=== PATIENT | male | born 1935 | race Caucasian/White ===

== ENCOUNTER 2016-08-22 19:09 | Emergency (ER) | payer MEDICARE ==
[2016-08-22] MEDS ORDERED: IOPAMIDOL 370 (76%) 100 ML VIAL IV ONE (19:10)
[2016-08-22] MEDS ORDERED: LACTATED RINGERS 1,000 ML ONE (19:46)
[2016-08-22] MEDS ORDERED: ASPIRIN CHEWTAB 81 MG TABLET ONE (19:46)
[2016-08-22] MEDS ORDERED: ACETAMINOPHEN 500 MG TABLET ONE (19:46)
[2016-08-22 19:59] LABS: BASO % 0.2 % (0.2-1.0); LYMPH # 0.6 (1.0-4.8); LYMPH % 4.9 % (15-45)
[2016-08-22 20:03] LABS: ABSOLUTE NEUTROPHIL COUNT 11.3 K/mm3 (1.8-7.7); EOS % 0.3 % (0.9-2.9); HEMOGLOBIN 15.8 gm/l (14.0-18.0); IMM NEUT% 0.2 % (0-1); MEAN CELL VOLUME 97.9 fl (80.0-94.0); MEAN CORPUSCULAR HEMOGLOBIN 32.9 pg (27.0-31.0); MEAN CORPUSCULAR HGB CONC 33.6 g/dl (33.0-37.0); MEAN PLATELET VOLUME 11.4 fl (7.4-10.4); MONO # 0.5 (0.0-0.8); MONO % 3.6 % (4-12); NEUT % 90.8 % (43-75); PLATELET COUNT 168 K/mm3 (130-400); RED CELL DISTRIBUTION WIDTH 12.1 % (11.5-14.5)
[2016-08-22 20:36] LABS: ALB/GLOB RATIO 1.5 (>1.0); ALBUMIN 4.4 gm/dL (3.5-5.7); CALCIUM 9.6 mg/dL (8.6-10.3); MAGNESIUM 1.7 mg/dL (1.9-2.7)
[2016-08-22 20:42] LABS: NEUTROPHILS 87 % (43-75); TOTAL CELLS COUNTED 100
[2016-08-22 20:43] LABS: BAND 1 % (0-10); BASOPHIL 0 % (0-1); EOSINOPHIL 3 % (1-3); LYMPHOCYTE 8 % (15-45); MONOCYTE 1 % (4-12); PLATELET ESTIMATE NORMAL (NORMAL); TROPONIN I 0.03 ng/ml (0.0-0.06)
[2016-08-22 20:47] LABS: CKMB ISOENZYME 2.1 ng/ml (0.6-6.3)
[2016-08-22 20:53] LABS: THYROID STIMULATING HORMONE 1.68 uIU/ml (0.34-5.60)
--- NOTE | 2016-08-22 20:55 | RAD ---
CHEST - 2 VIEWS COMPARISON: Portable chest x-ray, 08/10/1939 HISTORY: Fever and weakness. Tachycardia and decreased oxygen saturation. FINDINGS: Views: Frontal and lateral chest Lungs: No change. Scarring in the right lung base. Calcified nodule in the apex of the left upper lobe. The lungs are otherwise clear. Heart and vessels: Normal Trachea and bronchi: Normal Mediastinum and florence: Normal Costophrenic sulci: No change. Minimal blunting on the right. Chest wall and bones: Normal. Upper abdomen: Normal. IMPRESSION: No acute finding. Scarring in the right lung base. Calcified nodule in the apex of the left upper lobe.
[2016-08-22 21:00] LABS: URINE BILIRUBIN NEGATIVE (NEGATIVE); URINE BLOOD NEGATIVE (NEGATIVE); URINE GLUCOSE (UA) NEGATIVE (NEGATIVE); URINE LEUKOCYTE ESTERASE TRACE (NEGATIVE); URINE NITRITE NEGATIVE (NEGATIVE); URINE PROTEIN NEGATIVE (NEGATIVE); URINE UROBILINOGEN NORMAL (0-1 mg/dl)
[2016-08-22] MEDS ORDERED: SODIUM CHLORIDE 0.9% IV ONE ×2 (21:00)
[2016-08-22] MEDS ORDERED: PROCAINAMIDE HCL IV ONE ×2 (21:00)
[2016-08-22 21:01] LABS: URINE APPEARANCE CLEAR; URINE COLOR DARK YELLOW
[2016-08-22 21:08] LABS: URINE BACTERIA FEW; URINE EPITHELIAL CELLS 0 /hpf
[2016-08-22] MEDS ORDERED: IBUPROFEN 200 MG TABLET ONE (21:22)
[2016-08-22] MEDS ORDERED: AZITHROMYCIN 500 MG VIAL ONE (23:15)
[2016-08-22] MEDS ORDERED: CEFTRIAXONE SODIUM 1 G VIAL ONE (23:15)
[2016-08-22] MEDS ORDERED: SODIUM CHLORIDE 0.9% 250 ML IV ONE (23:16)
[2016-08-22] MEDS ORDERED: NS 0.9% (MINI-BAG PLUS) 100 ML IV ONE (23:16)
[2016-08-23] MEDS ORDERED: LACTATED RINGERS 1,000 ML ONE (00:04)
[2016-08-23] MEDS ORDERED: HEPARIN SODIUM PREMIX 500 ML IV ONE (02:22)
[2016-08-23] MEDS ORDERED: Heparin Sodium 5000 unit/0.5ml syringe ONE (02:30)
--- NOTE | 2016-08-23 07:45 | CT ---
CTA CHEST FOR PE History: Fever. Comparison: None. Procedure: 1 mm axial images were obtained through the chest following the administration of 80cc's of Isovue-370 intravenous contrast. Stacked reconstructed 3 mm images were then photographed in the axial, coronal and sagittal planes. 3-D reconstructed MIP images were also performed on the scanner workstation. Findings: There is evidence of enlargement of the inferior portion of the right thyroid lobe with a nodular focus suggested measuring 2.7 cm in the coronal plane. There is mediastinal adenopathy observed with a pretracheal lymph node measuring 1.4 cm in short axis dimension on image 35. Bilateral hilar adenopathy is also present right greater than left. The aorta appears to be of normal caliber. The heart size is within expected. There is calcified adenopathy seen within the left hilar region. The pulmonary arterial tree is adequately opacified. No filling defects are seen within the main, primary or secondary pulmonary arterial branches. A large calcified granuloma seen within the left upper lobe. There is dense airspace consolidation identified within the posterior right lower lobe. There is a calcified granuloma present within the left lower lobe. The central airways appear to be clear. Scans through the upper abdomen demonstrate numerous scattered splenic parenchymal calcifications. Impression: 1. No current evidence of a pulmonary embolus visualized. 2. Dense airspace consolidation within the right lower lobe suggestive of a pulmonary infiltrate. Mediastinal and bilateral hilar adenopathy is present, right greater than left. 3. Evidence of prior granulomatous disease. 4. A 2.7 cm right thyroid lobe nodule. Dedicated ultrasonography is recommended. 5. Probable cholelithiasis. The findings were called to the emergency room at 2323 hours, 08/22/2016, by [facility].
== END 2016-08-23 03:15 | disposition short-term general hospital (02) ==
LOC: ED 19:09
DX: A41.9 Sepsis, unspecified organism (principal); J18.9 Pneumonia, unspecified organism; J45.909 Unspecified asthma, uncomplicated; J44.9 Chronic obstructive pulmonary disease, unspecified; R00.0 Tachycardia, unspecified; R79.89 Other specified abnormal findings of blood chemistry; Z87.891 Personal history of nicotine dependence
CPT/HCPCS: 83605 ×2; 83880; 85025; 82553 ×2; 87040; 87086; 80053; 83735; 84443; 84484 ×2; 81001; 71020; 71275; 96375 ×3; 99285 ×2; 96374; 93005 ×2; A9270 ×3; J1644; J2690; J0696; J0456; J7120 ×2; J7050 ×2; Q9967